=== PATIENT | female | born 1985 | race Caucasian/White ===

== ENCOUNTER 2016-12-26 20:06 | Emergency (ER) | payer SELFPAY ==
[2016-12-26 20:33] VITALS: TEMP 98.6; BMI 27.4
[2016-12-26] MEDS ORDERED: ALBUTEROL SO4 2.5/IPRATROPIUM 0.5 INH SOL 3 ML VIAL.NEB. NEB ONE (23:49)
[2016-12-26] MEDS ORDERED: ACETAMINOPHEN 325 MG TABLET (FP) PO ONE (23:49)
--- NOTE | 2016-12-26 23:49 | PDOC ---
History of Present Illness <Antonietta Mathis - Last Filed: 12/26/16 23:45> - General History Source: Patient Exam Limitations: No Limitations - History of Present Illness Initial Comments: 12/26/16 23:53 The patient is a 31 year old female with a significant past medical history of asthma, and seasonal allergies, who presents to the ED with pleuritic chest pain , SOB, cough, and lightheadedness for 6 days. She describes the chest pain as tightness but sometimes sharp radiating to the throat and down her right arm. She states she had some alleviation after using her albuterol inhaler. She denies numbness/tingling She denies leg swelling. She denies fever, chills, nausea. She denies any prior history of PE or DVT. She is also complaining of crampy abdominal pain. LMP: Been menstruating for past three days. <Christofer Cortez - Last Filed: 12/27/16 01:40> <Ann Spring - Last Filed: 12/27/16 07:19> - General Chief Complaint: Chest Pain Stated Complaint: CHEST PAIN Past History - Past Medical History Anemia: Yes Asthma: Yes Suicide Attempt (Hx): No - Immunization History Td Vaccination: Yes Immunization Up to Date: No - Psycho/Social/Smoking Cessation Hx Anxiety: No Suicidal Ideation: No Smoking Status: No Smoking History: Never smoked Years of Tobacco Use: 0 Have you smoked in the past 12 months: No Number of Cigarettes Smoked Daily: 0 Cigars Per Day: 0 Information on smoking cessation initiated: No Hx Alcohol Use: No Drug/Substance Use Hx: No Substance Use Type: None <Antonietta Mathis - Last Filed: 12/26/16 23:45> <Christofer Cortez - Last Filed: 12/27/16 01:40> <Ann Spring - Last Filed: 12/27/16 07:19> - Past Medical History Allergies/Adverse Reactions: Allergies Allergy/AdvReac Type Severity Reaction Status Date / Time Penicillins Allergy RASH, Verified 12/26/16 20:31 SWELLING Home Medications: Ambulatory Orders NK [No Known Home Medication] 07/27/15 Review of Systems - Review of Systems Able to Perform ROS?: Yes Comments:: 12/26/16 23:53 GENERAL/CONSTITUTIONAL: No fever or chills. No weakness. HEAD, EYES, EARS, NOSE AND THROAT: No change in vision. No ear pain or discharge. No sore throat. CARDIOVASCULAR: + chest pain + SOB. RESPIRATORY: + cough No wheezing, or hemoptysis. GASTROINTESTINAL: No nausea, vomiting, diarrhea or constipation. GENITOURINARY: No dysuria, frequency, or change in urination. MUSCULOSKELETAL: No joint or muscle swelling or pain. No neck or back pain. SKIN: No rash NEUROLOGIC: + lightheadedness. No headache, loss of consciousness, or change in strength/sensation. ENDOCRINE: No increased thirst. No abnormal weight change. HEMATOLOGIC/LYMPHATIC: No anemia, easy bleeding, or history of blood clots. ALLERGIC/IMMUNOLOGIC: No hives or skin allergy. <Christofer Cortez - Last Filed: 12/27/16 01:40> *Physical Exam - Vital Signs Last Vital Signs Temp Pulse Resp BP Pulse Ox 98.6 F 96 H 18 109/79 100 12/26/16 20:32 12/26/16 20:32 12/26/16 20:32 12/26/16 20:32 12/26/16 20:32 <Antonietta Mathis - Last Filed: 12/26/16 23:45> - Vital Signs Last Vital Signs Temp Pulse Resp BP Pulse Ox 98.6 F 96 H 18 109/79 100 12/26/16 20:32 12/26/16 20:32 12/26/16 20:32 12/26/16 20:32 12/26/16 20:32 - Physical Exam Comments: 12/26/16 23:54 GENERAL: Awake, alert, and fully oriented, in no acute distress HEAD: No signs of trauma EYES: PERRLA, EOMI, sclera anicteric, conjunctiva clear ENT: Auricles normal inspection, hearing grossly normal, nares patent, oropharynx clear without exudates. Moist mucosa NECK: Normal ROM, supple, no lymphadenopathy, JVD, or masses LUNGS: Breath sounds equal, clear to auscultation bilaterally. No wheezes, and no crackles HEART: Regular rate and rhythm, normal S1 and S2, no murmurs, rubs or gallops. Chest wall tenderness. no crepitus. ABDOMEN: Soft, nontender, normoactive bowel sounds. No guarding, no rebound. No masses EXTREMITIES: Normal range of motion, no edema. No clubbing or cyanosis. No cords, erythema, or tenderness NEUROLOGICAL: Normal speech, normal gait SKIN: Warm, Dry, normal turgor, no rashes or lesions noted. <Christofer Cortez - Last Filed: 12/27/16 01:40> - Vital Signs Last Vital Signs Temp Pulse Resp BP Pulse Ox 98.6 F 96 H 18 109/79 100 12/26/16 20:32 12/26/16 20:32 12/26/16 20:32 12/26/16 20:32 12/26/16 20:32 <Ann Spring - Last Filed: 12/27/16 07:19> Heart Score/ECG Review - ECG Intrepretation Comment:: 12/27/16 01:38 Normal Sinus Rhythm, 86 bpm. Normal ECG. <Christofer Cortez - Last Filed: 12/27/16 01:40> ED Treatment Course - LABORATORY CBC & Chemistry Diagram: 12/26/16 23:10 12/26/16 23:10 <Christofer Cortez - Last Filed: 12/27/16 01:40> - LABORATORY CBC & Chemistry Diagram: 12/26/16 23:10 12/26/16 23:10 - ADDITIONAL ORDERS Additional order review: Laboratory Results 12/26/16 12/26/16 12/26/16 23:51 23:10 23:10 D-Dimer Cancelled Sodium 140 Potassium 4.3 Chloride 106 Carbon Dioxide 26 Anion Gap 8 BUN Creatinine 0.8 D Creat Clearance w eGFR > 60 Random Glucose 139 H D Calcium 8.2 L Total Bilirubin 0.5 D AST ALT Alkaline Phosphatase 126 H Total Protein Albumin 3.6 Urine Color Yellow Urine Appearance Cloudy Urine pH 7.0 Urine Protein 1+ H Urine Glucose (UA) Negative Urine Ketones Negative Urine Blood 3+ H Urine Nitrite Negative Urine Bilirubin Negative Urine Urobilinogen Negative Ur Leukocyte Esterase 1+ H Urine RBC 2027 Urine WBC None Ur Epithelial Cells Rare Urine HCG, Qual Negative 12/26/16 23:10 RBC 4.29 MCV 66.5 L MCHC 32.7 RDW 17.3 H MPV 9.4 Neutrophils % 57.7 D Lymphocytes % 32.0 D Monocytes % 6.7 Eosinophils % 3.0 Basophils % 0.6 - Medications Given in the ED: ED Medications Discontinued Medications Generic Name Dose Route Start Last Admin Trade Name Ambreen PRN Reason Stop Dose Admin Acetaminophen 650 mg 12/26/16 23:49 12/27/16 00:21 Tylenol - PO 12/26/16 23:50 650 mg ONCE ONE Administration Albuterol/Ipratropium 1 amp 12/26/16 23:49 12/27/16 00:21 Duoneb - NEB 12/26/16 23:50 1 amp ONCE ONE Administration Albuterol/Ipratropium 1 amp 12/27/16 02:17 12/27/16 02:30 Duoneb - NEB 12/27/16 02:18 1 amp ONCE ONE Administration Morphine Sulfate 4 mg 12/27/16 02:22 12/27/16 02:31 Morphine Injection - IVPUSH 12/27/16 02:23 4 mg ONCE ONE Administration Sodium Chloride 1,000 ml 12/27/16 01:45 12/27/16 02:11 Normal Saline - IV 12/27/16 01:46 1,000 ml ONCE ONE Administration <Ann Spring - Last Filed: 12/27/16 07:19> Medical Decision Making - Medical Decision Making 12/26/16 23:45 31 yo F with h/o seasonal allergies and asthma here with c/o chest pain and sob. started 6 days ago. has been using albuterol pump with, some relief, . no leg swellikng, noh/o pe or dvt. does also have some vertigo componenets. she c/ o c/o crampy abd pain, and has ric menstruating for three day. no travel. mod factors. on exam awake alert , NAD. lungs clear chest wall ttp. no crepitus no step off. heart RRR no mr/g abd soft NT ND. skin warm and dry. ext wwp no edema. no calf tenderness. no swelling. differential: asthma exacerbation infection uti, , menstrual crmpas pe. plan cxr neb rkg ua ucg duoneb and d dimer . <Antonietta Mathis - Last Filed: 12/26/16 23:45> - Medical Decision Making 12/27/16 03:56 Patient Name: Virginia Jones THIS IS A PRELIMINARYREPORT FROM [facility] EXAM: CT angiogram of the chest IMAGES: 985 INDICATION: Chest pain. Rule out PE. DATE OF SERVICE: 2016-12-27 03:02:59.0 COMPARISON: none FINDINGS : There is no PE or dissection. Heart size is normal. The trachea and bronchi are patent. There is no pleural or pericardial effusion. The lungs are clear mild subsegmental dependent atelectasis. No fractures identified. The upper abdominal structures are normal. IMPRESSION: No definite evidence of acute pathology. THIS DOCUMENT HAS BEEN ELECTRONICALLY SIGNED 12/27/16 07:18 All labs normal. No sign of PE; EKG nl and exam normal. Pt is stable for discahrge. Return for worsening pain. <Ann Spring - Last Filed: 12/27/16 07:19> *DC/Admit/Observation/Transfer <Antonietta Mathis - Last Filed: 12/26/16 23:45> - Attestations Scribe Attestion: 12/26/16 23:54 Documentation prepared by Christofer Cortez, acting as medical customer service representative for Antonietta Mathis MD, . <Christofer Cortez - Last Filed: 12/27/16 01:40> - Discharge Dispostion Admit: No <Ann Spring - Last Filed: 12/27/16 07:19> Diagnosis at time of Disposition: Atypical chest pain - Discharge Dispostion Disposition: HOME Condition at time of disposition: Stable - Patient Instructions Printed Discharge Instructions: DI for Atypical Chest Pain Print Language: LITHUANIAN
[2016-12-27 00:02] LABS: URINE APPEARANCE CLOUDY; URINE BILIRUBIN NEGATIVE (NEGATIVE); URINE COLOR YELLOW; URINE GLUCOSE (UA) NEGATIVE (NEGATIVE); URINE KETONE NEGATIVE (NEGATIVE); URINE NITRITE NEGATIVE (NEGATIVE); URINE UROBILINOGEN NEGATIVE E.U./dl (0.2-1.0)
[2016-12-27 00:06] LABS: URINE BLOOD 3+ (NEGATIVE); URINE LEUK ESTERASE 1+ (NEGATIVE); URINE PROTEIN 1+ (NEGATIVE)
[2016-12-27] MEDS ORDERED: ACETAMINOPHEN 325 MG TABLET (FP) ONE (00:16)
[2016-12-27] MEDS ORDERED: ALBUTEROL SO4 2.5/IPRATROPIUM 0.5 INH SOL 3 ML VIAL.NEB. NEB ONE ×2 (00:16→02:17)
[2016-12-27 00:31] LABS: BASOPHIL 0.6 % (0-2.0); MCH 21.7 pg (25.7-33.7); MCHC 32.7 g/dl (32.0-36.0); MEAN CELL VOLUME 66.5 fl (80-96); MEAN PLT VOLUME 9.4 fl (7.5-11.1); NEUTROPHILS 57.7 % (42.8-82.8); PLATELET COUNT 258 K/MM3 (134-434); RDW 17.3 % (11.6-15.6); WHITE BLOOD COUNT 9.9 K/mm3 (4.0-10.0)
[2016-12-27 00:58] LABS: URINE RBC 2027 /hpf (0-3)
[2016-12-27 01:01] LABS: ALBUMIN 3.6 g/dl (3.4-5.0); ALK PHOS 126 U/L (45-117); ANION GAP 8 (8-16); CALCIUM 8.2 mg/dL (8.5-10.1); CO2 26 mmol/L (21-32); CREATININE 0.8 mg/dL (0.55-1.02)
[2016-12-27 01:04] LABS: GLUCOSE,RANDOM 139 mg/dL (74-106)
[2016-12-27 01:06] LABS: BILIRUBIN,TOTAL 0.5 mg/dL (0.2-1.0)
[2016-12-27] MEDS ORDERED: SODIUM CHLORIDE 0.9% 1000 ML INFUS.BAG IV ONE (01:45)
[2016-12-27] MEDS ORDERED: morphine CARPU-JECT 4 MG/1 ML DISP.SYRIN ONE (02:22)
[2016-12-27] MEDS ORDERED: morphine CARPU-JECT 4 MG/1 ML DISP.SYRIN IVPUSH ONE (02:22)
[2016-12-27 05:52] LABS: AMYLASE 33 U/L (25-115)
[2016-12-27 05:59] LABS: TROPONIN I < 0.02 ng/ml (0.00-0.05)
[2016-12-27 06:14] VITALS: BP 124/78; PULSE 85
[2016-12-27 07:38] LABS: HYPOCHROMIA FEW; PLATELET ESTIMATE ADEQUATE (NORMAL); POLYCHROMASIA FEW
[2016-12-27 07:39] LABS: MICROCYTOSIS FEW
--- NOTE | 2016-12-27 10:36 | EKG ---
Test Reason : Blood Pressure : / mmHG Vent. Rate : 086 BPM Atrial Rate : 086 BPM P-R Int : 116 ms QRS Dur : 078 ms QT Int : 370 ms P-R-T Axes : 005 039 025 degrees QTc Int : 442 ms NORMAL SINUS RHYTHM NORMAL ECG NO PREVIOUS ECGS AVAILABLE Confirmed by TAMMY GAGE MD ([id number]) on 12/27/2016 10:36:10 AM Referred By: Confirmed By:TAMMY GAGE MD
== END 2016-12-27 06:49 | disposition home or self-care (01) ==
LOC: JER 20:06
PROC: 3E033NZ Introduction of Analgesics, Hypnotics, Sedatives into Peripheral Vein, Percutaneous Approach (ICD-10-PCS; principal; 2016-12-26)
PROC: 3E0F7GC Introduction of Other Therapeutic Substance into Respiratory Tract, Via Natural or Artificial Opening (ICD-10-PCS; 2016-12-26)
PROC: 3E0F7GC Introduction of Other Therapeutic Substance into Respiratory Tract, Via Natural or Artificial Opening (ICD-10-PCS; 2016-12-26)
DX: R07.89 Other chest pain (principal); J45.909 Unspecified asthma, uncomplicated; J30.2 Other seasonal allergic rhinitis
CPT/HCPCS: 36415; 71020-TC; 71275-TC; 80053; 81003; 81015; 82150; 82550; 83690; 84484; 84703; 85025; 93005; 93010; 99283-25

== ENCOUNTER 2017-02-23 19:56 | Emergency (ER) | payer SELFPAY ==
[2017-02-23 20:18] VITALS: BP 121/76; PULSE 114; TEMP 99.4; BMI 23.3
[2017-02-23] MEDS ORDERED: LIDOCAINE HCL 1%, 10 MG/ML (50 mL VIAL) INF ONE (22:19)
[2017-02-23] MEDS ORDERED: LIDOCAINE HCL 1%, 10 MG/ML (20ML VIAL) ONE (23:03)
[2017-02-23] MEDS ORDERED: CEPHALEXIN MONOHYDRATE 500 MG CAPSULE (UD) PO ONE (23:39)
[2017-02-23] MEDS ORDERED: SULFAMETHOXAZOLE/TRIMETHOPRIM 800MG/160MG D.S. TABLET PO ONE (23:39)
[2017-02-23] MEDS ORDERED: IBUPROFEN 600 MG TABLET (FP) PO ONE (23:39)
--- NOTE | 2017-02-23 23:41 | PDOC ---
History of Present Illness - General Chief Complaint: Abscess Boil Stated Complaint: PAIN, ACUTE Time Seen by Provider: 02/23/17 20:48 History Source: Patient Exam Limitations: No Limitations - History of Present Illness Initial Comments: 02/24/17 00:03 31yo Female patient with no significant past medical history presents to ED c/o abscess to buttocks. Patient states symptoms began Tuesday, when her buttocks felt hot. She state symptoms became worse and is unable to sit down at this time. LNMP: Current. Patient denies any other complaints. Timing/Duration: reports: getting worse Severity: Yes: severe Location: reports: other (Buttocks) Respiratory Risk Factors: reports: no cause identified Modifying Factors: worse with: antihistamine, calamine lotion, prednisone, scratching, topical steriods, other Associated Symptoms: denies: denies symptoms, blisters, change in skin texture, edema, fever, flushing, headache, hives, jaundice, malaise, nasal congestion, numbness, pallor, paresthesia, petechiae, rash, sore throat, swelling/mass/lumps , tingling, other Past History - Travel Traveled outside of the country in the last 30 days: No Close contact w/someone who was outside of country & ill: No - Past Medical History Allergies/Adverse Reactions: Allergies Allergy/AdvReac Type Severity Reaction Status Date / Time Penicillins Allergy RASH, Verified 12/26/16 20:31 SWELLING Home Medications: Ambulatory Orders Cephalexin Monohydrate [Keflex -] 500 mg PO BID #20 capsule 02/24/17 Ibuprofen [Motrin -] 600 mg PO Q6H PRN #30 tablet 02/24/17 Oxycodone HCl/Acetaminophen [Percocet 5-325 mg Tablet] 1 tab PO Q6H PRN #20 tablet MDD 4 tabs 02/24/17 Sulfamethoxazole/Trimethoprim [Bactrim Ds -] 1 tab PO BID #14 tablet 02/24/17 Anemia: Yes Asthma: Yes Suicide Attempt (Hx): No - Immunization History Td Vaccination: Yes Immunization Up to Date: No - Psycho/Social/Smoking Cessation Hx Anxiety: No Suicidal Ideation: No Smoking Status: No Smoking History: Never smoked Years of Tobacco Use: 0 Have you smoked in the past 12 months: No Number of Cigarettes Smoked Daily: 0 Cigars Per Day: 0 Hx Alcohol Use: No Drug/Substance Use Hx: No Substance Use Type: None Review of Systems - Review of Systems Able to Perform ROS?: Yes Is the patient limited [place] Citizen proficient: Yes Constitutional: No: Chills, Fever Integumentary: Yes: Erythema, Other (Abscess to Buttocks.). No: Rash, Sweating All Other Systems: Reviewed and Negative *Physical Exam - Vital Signs Last Vital Signs Temp Pulse Resp BP Pulse Ox 99.4 F 114 H 20 121/76 97 02/23/17 20:16 02/23/17 20:16 02/23/17 20:16 02/23/17 20:16 02/23/17 20:16 - Physical Exam General Appearance: Yes: Nourished, Appropriately Dressed, Apparent Distress, Moderate Distress. No: Mild Distress, Severe Distress Respiratory/Chest: positive: Lungs Clear, Normal Breath Sounds. negative: Chest Tender, Respiratory Distress, Accessory Muscle Use, Labored Respiration, Rapid RR, Stridor, Wheezing Cardiovascular: positive: Regular Rhythm, Regular Rate Gastrointestinal/Abdominal: positive: Normal Bowel Sounds, Soft. negative: Tender, Flat, Distended, Guarding, Rebound, Tenderness Musculoskeletal: positive: Normal Inspection. negative: CVA Tenderness Extremity: positive: Normal Capillary Refill, Normal Inspection, Normal Range of Motion. negative: Pedal Edema, Swelling, Calf Tenderness, Erythema, Inflammation Integumentary: positive: Normal Color, Dry, Warm, Other (Large Abscess to left Buttock. + Fluctuant. Mild erythema.) Neurologic: positive: accountant clerk II-XII NML intact, Fully Oriented, Alert, Normal Mood/ Affect, Normal Response, Motor Strength 5/5 Procedures - Incision and Drainage I&D Site: Left: Buttock Betadine cleansed: Yes Anesthesia: 1% Lidocaine Volume(ml): 15 Blade Size: 11 Attempts: 1 Iodinated Packin/4 in Plain Packing: No Complications: none Dressing: Yes Progress: 02/24/17 00:10 Patient tolerated procedure poorly. ED Treatment Course - Medications Given in the ED: ED Medications Discontinued Medications Generic Name Dose Route Start Last Admin Trade Name Freq PRN Reason Stop Dose Admin Lidocaine HCl 20 ml 02/23/17 22:19 02/23/17 23:10 Xylocaine 1% INF 02/23/17 22:20 20 ml ONCE ONE Administration *DC/Admit/Observation/Transfer Diagnosis at time of Disposition: Pilonidal abscess - Discharge Dispostion Disposition: HOME Condition at time of disposition: Improved Admit: No - Prescriptions Prescriptions: Sulfamethoxazole/Trimethoprim [Bactrim Ds -] 1 tab PO BID #14 tablet Cephalexin Monohydrate [Keflex -] 500 mg PO BID #20 capsule Ibuprofen [Motrin -] 600 mg PO Q6H PRN #30 tablet PRN Reason: Mild Pain Oxycodone HCl/Acetaminophen [Percocet 5-325 mg Tablet] 1 tab PO Q6H PRN #20 tablet MDD 4 tabs PRN Reason: Severe Pain - Referrals Referrals: Kane Lopez MD [Staff Physician] - - Patient Instructions Additional Instructions: Seguimiento en 2 mathews para la retirada del empaque. [place] los medicamentos segn lo prescrito. No conduzca, terri alcohol ni opere maquinaria pesada mientras est tomando Percocet. Cambie el vendaje diariamente a partir de maana o cuando sea necesario si est sucio. Vuelva si cualquier preocupacin para la evaluaci n adicional. Follow up in 2 days for packing removal. Take medications as prescribed. Do not drive, drink alcohol, or operate heavy machinery while taking Percocet. Change dressing daily starting tomorrow or as needed if soiled. Return if any concerns for further evaluation. Usted puede seguir con el Dr. Lopez para los servicios de atencin primaria. Llame para programar thaddeus bob para establecer el cuidado. You may follow up with Dr. Lopez for primary care services. Call to schedule appointment to establish care. Print Language: KOREAN - Post Discharge Activity Work/School Note: Back to Work
[2017-02-24] MEDS ORDERED: SULFAMETHOXAZOLE/TRIMETHOPRIM 800MG/160MG D.S. TABLET ONE (00:04)
[2017-02-24] MEDS ORDERED: CEPHALEXIN MONOHYDRATE 250 MG CAPSULE (FP) ONE (00:04)
[2017-02-24] MEDS ORDERED: IBUPROFEN 600 MG TABLET (FP) PO ONE (00:05)
== END 2017-02-24 00:23 | disposition home or self-care (01) ==
LOC: JER 19:56
PROC: 0H98XZZ Drainage of Buttock Skin, External Approach (ICD-10-PCS; principal; 2017-02-23)
DX: L05.01 Pilonidal cyst with abscess (principal)
CPT/HCPCS: 99281-25

== ENCOUNTER 2022-02-14 | Emergency (ER) | payer SELFPAY ==
[2022-02-14 00:22] VITALS: BP 139/74; PULSE 92; RESP 20; TEMP 98.7; BMI 45.3
[2022-02-14] MEDS ORDERED: ACETAMINOPHEN 500 MG TABLET (FP) PO ONE (00:41)
[2022-02-14] MEDS ORDERED: ACETAMINOPHEN 325 MG TABLET (FP) ONE (00:48)
== END 2022-02-14 03:16 | disposition home or self-care (01) ==
LOC: JER
DX: S82.891A Other fracture of right lower leg, initial encounter for closed fracture (principal); X50.9XXA Other and unspecified overexertion or strenuous movements or postures, initial encounter
CPT/HCPCS: 73590-TC-RT-FY; 73610-TC-RT-FY; 73630-TC-RT-FY; 99283-25